=== PATIENT | male | born 1975 | race Two or more races ===

== ENCOUNTER 2020-11-29 19:31 | Emergency (ER) | payer MEDICAID ==
[~2020-11-29] VITALS: Ht 170.2 cm; Wt 77.1 kg
[2020-11-29 19:50] VITALS: BP 125/78
--- NOTE | 2020-11-29 19:50 | NUR ---
ED Nurse Note: Pt walked in from home, walks witha steady gait, vitals are stable as documented on RA, axox4, speaks in full sentances. Pt states taht he fell at home on his left shoulder, he co of 10/10 shouder pain. he went to a clinic who refered him to the ER for further treatment. Equal bilateral radial pulses, pt can move fingers on his left hand. Denies numbess or tingling.
--- NOTE | 2020-11-29 21:20 | Emergency Room Report ---
History of Present Illness General Chief Complaint: Multiple Trauma/Fall Present Illness HPI 45-year-old male presents to the emergency department complaining of 8 out of 10 severity localized pain to the left shoulder and left clavicle status post mechanical trip and fall earlier today. Patient reports he was seen at urgent care clinic which performed x-rays and told him that he needed to report to the emergency department due to having fractures. Patient reports he is right-hand dominant. He denies open wounds or bleeding. He denies swelling or bruising. He reports tenderness to palpation of the left shoulder and left clavicle. He reports pain exacerbation upon movement of the left arm. He denies paresthesias. He denies loss of gross motor movements. He denies hitting his head or having a loss of consciousness. He denies midline neck or back pain. 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 - 2 wks ago COVID-19 Screening: Negative COVID-19 COVID-19 Testing Source: na Patient History Past Medical History: see triage record Past Surgical History: none Pertinent Family History: none Reviewed Nursing Documentation: PMH: Agreed; PSxH: Agreed Review of Systems All Other Systems: negative except mentioned in HPI Physical Exam Vital Signs Date Time Temp Pulse Resp B/P (MAP) Pulse Ox O2 Delivery O2 Flow Rate FiO2 11/29/20 19:38 97.9 89 18 125/78 (94) 98 Room Air Sp02 EP Interpretation: reviewed, normal General Appearance: no apparent distress, alert, GCS 15, non-toxic Head: normocephalic, atraumatic Eyes: bilateral eye normal inspection, bilateral eye PERRL ENT: hearing grossly normal, normal voice Neck: full range of motion, no bony tend Respiratory: chest non-tender, lungs clear, normal breath sounds, no respiratory distress, no wheezing, speaking full sentences Cardiovascular #1: regular rate, rhythm, normal capillary refill Cardiovascular #2: 2+ radial (R), 2+ radial (L) Musculoskeletal: back normal, gait/station normal, tender - TTP to the left clavicle, pain with ROM testing. pt is NVI, other - ST swelling of the left clavicle. Neurologic: alert, motor strength/tone normal, oriented x3, sensory intact, responsive, speech normal Psychiatric: judgement/insight normal Skin: no rash, normal color Medical Decision Making PA Attestation Dr. Hightower is my supervising Physician whom patient management has been discussed with. Diagnostic Impression: Primary Impression: Clavicular fracture Qualified Codes: S42.022A - Displaced fracture of shaft of left clavicle, initial encounter for closed fracture Additional Impression: Injury of shoulder, left Qualified Codes: S49.92XA - Unspecified injury of left shoulder and upper arm, initial encounter ER Course 45-year-old male presents to the emergency department complaining of 8 out of 10 severity localized pain to the left shoulder and left clavicle status post mechanical trip and fall earlier today. Patient reports he was seen at urgent care clinic which performed x-rays and told him that he needed to report to the emergency department due to having fractures. Patient reports he is right-hand dominant. He denies open wounds or bleeding. He denies swelling or bruising. He reports tenderness to palpation of the left shoulder and left clavicle. He reports pain exacerbation upon movement of the left arm. He denies paresthesias. He denies loss of gross motor movements. He denies hitting his head or having a loss of consciousness. He denies midline neck or back pain. Ddx considered but are not limited to Fracture, dislocation, contusion, Sprain/Strain/Spasm, Vital signs: are WNL, pt. is afebrile H&PE are most consistent with musculoskeletal injury will perform imaging to r/o fractures/dislocations. ORDERS: - X-ray Left Shoulder 3 views and Left clavicle 2 views. - Positive for mid shaft clavicular fx --per preliminary read in ED, and signed by YUKI Nogueira, my supervising physician has reviewed, and agrees with my interpretation. ED INTERVENTIONS: -Left Shoulder immobilizer applied to the left arm by filter changing technician. Pt. remains neurovascularly intact. DISCHARGE: At this time pt. is stable for d/c to home. Will provide printed patient care instructions, and any necessary prescriptions. Care plan and follow up instructions have been discussed with the patient prior to discharge. Other X-Ray Diagnostic Results Other X-Ray Diagnostic Results #1: X-Ray ordered: Left shoulder # of Views/Limited Vs Complete: 3 View Indication: Pain EP Interpretation: Yes YUKI Xray: Interpretation reviewed, by supervising MD, and agrees with findings. Interpretation: no dislocation, no soft tissue swelling, no fractures Impression: No acute disease Electronically Signed by: cheyenne Nogueira PA-C Other X-Ray Diagnostic Results #2: X-Ray ordered: Left Clavicle # of Views/Limited Vs Complete: 2 View Indication: Pain EP Interpretation: Yes PA Xray: Interpretation reviewed, by supervising MD, and agrees with findings. Interpretation: no dislocation, no soft tissue swelling, other - mid shaft clavicular fracture, mildly displaced. Impression: Other - abnormal Electronically Signed by: Cheyenne Nogueira PA-C Last Vital Signs Date Time Temp Pulse Resp B/P (MAP) Pulse Ox O2 Delivery O2 Flow Rate FiO2 11/29/20 19:50 90 17 Room Air 11/29/20 19:50 98.0 125/78 98 Status: improved Disposition: HOME, SELF-CARE Condition: Stable Referrals: NOT CHOSEN IPA/,REFERRING (PCP) Christie Duggan Comp. [facility] Patient Instructions: Clavicle Fracture, [id number], How to Use a Shoulder Immobilizer Additional Instructions: Take medications as directed. Do not drink alcohol, drive, or operate heavy machinery while taking [place] as this may cause drowsiness. Follow up with an MANAGER SIGN in 3-5 days, even if your symptoms have resolved. If symptoms persist MRI may be required at the discretion of your PCP or Ortho Specialist. --Please review list of primary care clinics, if you do not already have a primary care provider who can give you an Orthopedic Referral. Return sooner to ED if new symptoms occur, or current symptoms become worse. - Please note that this Emergency Department Report was dictated using [employer] worker technology software, occasionally this can lead to erroneous entry secondary to interpretation by the dictation equipment. Cheyenne Nogueira Nov 29, 2020 21:20
[2020-11-29] MEDS ORDERED: HYDROCODON-ACE1 EA15 ORAL (21:21)
--- NOTE | 2020-11-29 21:44 | NUR ---
ER DISCHARGE NOTE: Patient is cleared to be discharged per ERMD, pt is aox4, on room air, with stable vital signs. pt was given dc and prescription instructions, pt was able to verbalize understanding, pt id band removed. Pt was put in shoulder imobilazer. pt is able to ambulate with steady gait. pt took all belongings. pt left in a private car
[2020-11-29 21:45] VITALS: BP 135/83
--- NOTE | 2020-11-30 15:49 | Diagnostic Imaging Report ---
Indication: Pain, trauma, status post fall from ladder Technique: 2 views of the left clavicle Comparison: none Findings: No acute fracture. No dislocation. Impression: Negative
--- NOTE | 2020-11-30 19:02 | Diagnostic Imaging Report ---
Indication: Left shoulder pain Technique: 3 views of the left shoulder Comparison: none Findings: No acute fracture. No dislocation. Joint spaces are preserved Impression: Negative
== END 2020-11-29 21:46 | disposition home or self-care (01) ==
LOC: EMR 19:55
DX: S42.022A Displaced fracture of shaft of left clavicle, initial encounter for closed fracture (principal); S49.92XA Unspecified injury of left shoulder and upper arm, initial encounter; W01.0XXA Fall on same level from slipping, tripping and stumbling without subsequent striking against object, initial encounter; Y93.9 Activity, unspecified; Y92.9 Unspecified place or not applicable
CPT/HCPCS: 73000; 73030; Z7502; 99284